=== PATIENT | female | born 1975 | race Caucasian/White ===

== ENCOUNTER 2022-10-27 10:58 | Outpatient (CLI) | payer BC | END 2022-10-27 10:59 | disposition home or self-care (01) | LOC: BICRAD 10:58 | PROVIDERS: ATTEND Family Medicine | DX: R07.89 Other chest pain (principal); R05.1 Acute cough; R06.02 Shortness of breath; R09.81 Nasal congestion; Q25.49 Other congenital malformations of aorta; M95.4 Acquired deformity of chest and rib; Z98.890 Other specified postprocedural states | CPT/HCPCS: 71046 ==